=== PATIENT | female | born 1985 | race African-American/Black ===

== ENCOUNTER 2016-07-21 12:53 | Emergency (ER) | payer MEDICAID, OTHER ==
[~2016-07-21] VITALS: Ht 170.2 cm; Wt 54.5 kg
[2016-07-21 15:58] VITALS: BP 125/78
== END 2016-07-21 15:58 | disposition home or self-care (01) ==
LOC: ER 12:54
DX: L08.9 Local infection of the skin and subcutaneous tissue, unspecified (principal); Z98.890 Other specified postprocedural states
CPT/HCPCS: 99283

== ENCOUNTER 2019-03-20 05:01 | Emergency (ER) | payer MEDICAID ==
[~2019-03-20] VITALS: Ht 172.7 cm; Wt 57.0 kg
[2019-03-20 05:12] VITALS: BP 124/87
== END 2019-03-20 06:21 | disposition left against medical advice (07) ==
LOC: ER 05:01
DX: R68.89 Other general symptoms and signs (principal); Z53.21 Procedure and treatment not carried out due to patient leaving prior to being seen by health care provider

== ENCOUNTER 2020-07-26 21:57 | Emergency (ER) | payer MEDICAID ==
[~2020-07-26] VITALS: Ht 170.2 cm; Wt 61.0 kg
[2020-07-26 22:21] VITALS: BP 112/75
[2020-07-26] MEDS ORDERED: ACET-2708 MT (22:50)
== END 2020-07-26 23:10 | disposition home or self-care (01) ==
LOC: ER 21:57
DX: R51.9 Headache, unspecified (principal); M79.645 Pain in left finger(s); Y04.0XXA Assault by unarmed brawl or fight, initial encounter; Y93.89 Activity, other specified; Y92.89 Other specified places as the place of occurrence of the external cause
CPT/HCPCS: 99282